=== PATIENT | female | born 1980 | race African-American/Black ===

== ENCOUNTER 2020-07-01 21:32 | Emergency (ER) | payer SELFPAY ==
[2020-07-01] MEDS ORDERED: Morphine 4 MG/ML VIAL ONE (21:58)
[2020-07-01] MEDS ORDERED: Silver Sulfadiazine 50 GM TUBE ONE (23:10)
== END 2020-07-01 23:13 | disposition home or self-care (01) ==
LOC: ERS 21:32
DX: T24.212A Burn of second degree of left thigh, initial encounter (principal); T25.222A Burn of second degree of left foot, initial encounter; T31.0 Burns involving less than 10% of body surface; X11.8XXA Contact with other hot tap-water, initial encounter
CPT/HCPCS: 99283; J2270